=== PATIENT | female | born 1935 | race African-American/Black ===

== ENCOUNTER 2016-11-14 08:34 | Day surgery (SDC) | payer MEDICARE, MEDICAID ==
--- NOTE | 2016-10-30 12:40 | HISTORY AND PHYSICAL E ---
History and Physical NAME: SHIRLEY MIDDLETON : 1935 AGE: 81Y ADMITTED: 11/14/2016 ROOM: HISTORY AND PHYSICAL: Patient is known to me, presented regarding colon screening. She was referred to us by Dr. Corea at [facility]. Patient is for colon screening. HISTORY: Reviewing record shows as follows: We saw the patient back many years ago. She was presented to us regarding reflux and weight loss. Patient did have upper endoscopy by Dr. Rahman. She did have dysphagia, stricture of the esophagus and she did have esophageal stricture. The patient did have upper endoscopy by Dr. Rahman. The patient had benign stenosis of the GE junction. She did have TTS dilatation passed through the scope, dilatation to 18/19/20 balloon. The patient did have small hiatus hernia. The patient does have gastritis. The patient did have colonoscopy on 09/29/2015. She did have upper endoscopy consultation regarding dilatation. The patient did have mild strictures not narrow enough to dilate, 1-cm sessile polyp in the duodenum, lower esophageal ring. REVIEW OF SYSTEMS: CARDIAC: Hypertension. GASTROINTESTINAL: Reflux, anemia, weight loss. MUSCULOSKELETAL: Arthritis. FAMILY HISTORY: Father of heart failure and mom of old age. SOCIAL HISTORY: The patient is single. She does not smoke. Rare alcohol, occasional. PAST SURGICAL HISTORY: She did have a right knee replacement. PHYSICAL EXAMINATION: VITAL SIGNS: Blood pressure 140/60, pulse 80, respirations 20, temp 98. HEENT: Normal. NECK: Supple. LUNGS: Clear. ABDOMEN: Soft. NEUROLOGIC: Negative. INDICATION FOR PROCEDURE: Again, the patient presented to us regarding colon screening, referred to us by Dr. Corea, [facility] in [place]. MEDICATIONS: 1. Hydrochlorothiazide. 2. Pantoprazole 3. Protonix. 4. Vitamin C. 5. Ibuprofen. ALLERGIES: 1. PENICILLIN. 2. SULFA. CONCLUSIONS: Colon screening scheduled for November 14. DICTATING PHYSICIAN: FIORDALIZA THOMPSON M.D. 1209M [id number] PHY#: [id number] ID: [id number] JOB#: [id number] ACCT: [id number] cc:FIORDALIZA THOMPSON M.D. >
[~2016-11-14 08:34] MED LIST: EPINEPHRINE INJ 1 MG/10 ML DISP.SYRIN ONE; FENTANYL CITRATE INJ/PF 100 MCG/2 ML AMPUL ONE; FLUMAZENIL INJ 0.5 MG/5 ML VIAL IV ONE; GLUCAGON,HUMAN RECOMB 1 MG INJ ONE; GLYCOPYRROLATE INJ 0.4 MG/2 ML VIAL ONE; LIDOCAINE 2% JELLY 30 ML TUBE ONE; NALOXONE HCL INJ/PF 0.4 MG/1 ML SDV ONE; ONDANSETRON HCL INJ/PF 4 MG/2 ML SDV ONE; PROMETHAZINE HCL INJ 25 MG/1 ML VIAL ONE
[2016-11-14] MEDS: MIDAZOLAM 2 MG/2 ML INJ ONE ×2 (09:25→09:36)
[2016-11-14 10:53] VITALS: BP 116/66
--- NOTE | 2016-11-14 13:56 | DISCHARGE SUMMARY E ---
Discharge Summary NAME: SHIRLEY MIDDLETON : 1935 AGE: 81Y ADMITTED: 11/14/2016 DISCHARGED: 11/14/2016 PROCEDURE: Colonoscopy. FINAL DIAGNOSIS: Sigmoid descending colon diverticulosis. No need for followup except if clinical condition change. HISTORY: Pleasant, 81, known to us with reflux and esophageal stricture. Colon screening today shows no polyps. She did have diverticulosis with no diverticulitis. She is allergic to SULFA and PENICILLIN. DISCHARGE PLAN: Soft diet. Follow up office visit in the next few days. DICTATING PHYSICIAN: FIORDALIZA THOMPSON M.D. [id number] PHY#: [id number] ID: [id number] JOB#: [id number] ACCT: [id number] cc:FIORDALIZA THOMPSON M.D. >
--- NOTE | 2016-11-14 13:56 | OPERATIVE REPORT E ---
Operative Report NAME: SHIRLEY MIDDLETON : 1935 AGE: 81Y DATE OF SURGERY: 11/14/2016 ROOM: PREOPERATIVE DIAGNOSIS: Colon screening. POSTOPERATIVE DIAGNOSIS: Sigmoid, descending colon diverticulosis. OPERATION: Colonoscopy. SURGEON: FIORDALIZA THOMPSON M.D. ANESTHESIA: Versed 2 mg, fentanyl 100 mcg. TISSUE REMOVED OR ALTERED: None. PROCEDURE: Rectal exam normal. Sigmoid, descending colon diverticulosis. Transverse colon normal. Ascending colon normal. Cecum normal. Scope withdrawn, cecum, ascending, transverse, descending, sigmoid, all the way to the rectum. CONCLUSIONS: 1. Diverticulosis, sigmoid, descending colon. 2. No polyps. 3. No malignancy. PLAN: Assurance. Soft diet for 2 days. Patient tolerated procedure well. No polyps. Patient stable. Discharged to her room in stable condition. No need for followup colonoscopy if patient's clinical condition continues to be the same. DICTATING PHYSICIAN: FIORDALIZA THOMPSON M.D. [id number] Y#: [id number] ID: [id number] JOB#: [id number] ACCT: [id number] cc:FIORDALIZA THOMPSON M.D. >
== END 2016-11-14 10:54 | disposition home or self-care (01) ==
LOC: END 08:34
PROVIDERS: ATTEND Specialist
PROC: 0DJD8ZZ Inspection of Lower Intestinal Tract, Via Natural or Artificial Opening Endoscopic (ICD-10-PCS; principal; 2016-11-14 09:00)
DX: Z12.11 Encounter for screening for malignant neoplasm of colon (principal); K57.30 Diverticulosis of large intestine without perforation or abscess without bleeding; I10 Essential (primary) hypertension; K21.9 Gastro-esophageal reflux disease without esophagitis; D64.9 Anemia, unspecified; M19.90 Unspecified osteoarthritis, unspecified site; Z96.651 Presence of right artificial knee joint; Z88.2 Allergy status to sulfonamides; Z88.0 Allergy status to penicillin
CPT/HCPCS: G0121; J2250; J3010; J1610; 45378; J0171; J2310; J2405; J2550; J3490

== ENCOUNTER → 2018-03-06 | Outpatient (CLI) | payer MEDICARE, MEDICAID ==
--- NOTE | 2018-03-06 15:11 | RADIOLOGY REPORT (SQ) ---
EXAM DESCRIPTION: ARTERIAL UPPER EXTREM UNILAT COMPLETED DATE/TIME: 03/06/2018 2:06 pm REASON FOR STUDY: RUE INJURY OF BRACHIAL ARTERY S45.101S UNSPECIFIED INJURY OF BRACHIAL ARTERY, RIG HT SIDE, COMPARISON: None. TECHNIQUE: Dynamic and static ruth scale and color images acquired of the RIGHT upper extremity megan layne. Additional selected spectral images recorded. Images saved to PACS. LIMITATIONS: None. FINDINGS: RIGHT UPPER EXTREMITY: SUBCLAVIAN: Normal Doppler waveforms. No velocity elevation to suggest stenosis. AXILLARY: Normal Doppler waveforms. No velocity elevation to suggest stenosis. Normal color Doppler evaluation. BRACHIAL: Normal Doppler waveforms. No velocity elevation to suggest stenosis. Normal color Doppler evaluation. No brachial artery dissection or pseudoaneurysm. No hematoma. RADIAL: Normal Doppler waveforms. No velocity elevation to suggest stenosis. Normal color Doppler e valuation. ULNAR: Normal Doppler waveforms. No velocity elevation to suggest stenosis. Normal color Doppler ev aluation. OTHER: No other significant finding. IMPRESSION: NORMAL RIGHT UPPER EXTREMITY ARTERIAL DOPPLER. TECHNICAL DOCUMENTATION: JOB ID: [id number] [employer]- All Rights Reserved Reading location - IP/workstation name: [facility]
== END ==
LOC: SP 10:53
PROVIDERS: ATTEND Family Medicine
DX: S45.1 Injury of brachial artery (principal); X58.XXXA Exposure to other specified factors, initial encounter
CPT/HCPCS: 93931